=== PATIENT | female | born 1990 | race Caucasian/White ===

== ENCOUNTER 2018-08-24 15:29 | Outpatient (CLI) | payer OTHER ==
--- NOTE | 2018-08-24 15:55 | ULT ---
LIMITED RIGHT BREAST ULTRASOUND: Date: 08-24-18 Provided Clinical History: Right breast pain. FINDINGS: Limited sonographic interrogation of the right breast was performed in the region of the patient's pa in. The sonographic appearance of the breast parenchyma in this region is normal. IMPRESSION: No sonographic abnormality is evident in the region of patient pain. Negative imaging findings should not preclude further evaluation of a clinically suspicious area. The patient was referred back to [facility] physician. POS: [facility]
== END 2018-08-24 15:30 | disposition home or self-care (01) ==
LOC: BICULT 15:29
PROVIDERS: ATTEND Family Medicine
DX: N63.10 Unspecified lump in the right breast, unspecified quadrant (principal)